=== PATIENT | male | born 1950 | race Caucasian/White ===

== ENCOUNTER 2019-10-02 15:02 | Inpatient (IN) | payer MEDICARE, OTHER ==
[~2019-10-02] VITALS: Ht 182.9 cm; Wt 90.9 kg
[2019-10-02] MEDS ORDERED: furosemide 40mg/4ml inj IV ONE (16:00)
[2019-10-02 16:23] LABS: BASOPHILS # (AUTO) 0.1 X10'3 (0-0.2); BASOPHILS % (AUTO) 1.8 % (0-1); EOSINOPHILS # (AUTO) 0.2 X10'3 (0-0.9); EOSINOPHILS % (AUTO) 2.1 % (0-6); HEMATOCRIT 33.9 % (42.0-52.0); HEMOGLOBIN 10.8 g/dl (14.0-17.9); LYMPHOCYTES # (AUTO) 0.7 X10'3 (1.1-4.8); LYMPHOCYTES % (AUTO) 8.3 % (21-51); MEAN CORPUSCULAR HEMOGLOBIN 26.4 PG (27.0-31.0); MEAN CORPUSCULAR HGB CONC 31.8 g/dL (33.0-36.5); MEAN PLATELET VOLUME 9.1 FL (7.4-10.4); MONOCYTES # (AUTO) 0.9 X10'3 (0-0.9); MONOCYTES % (AUTO) 11.1 % (2-12); NEUTROPHILS # (AUTO) 6.1 X10'3 (1.8-7.7); NEUTROPHILS % (AUTO) 76.7 % (42-75); PLATELET COUNT 152 X10'3 (140-440); RED BLOOD COUNT 4.08 X10'6 (4.70-6.10); RED CELL DISTRIBUTION WIDTH 19.9 % (11.5-14.5)
[2019-10-02 16:24] LABS: ALANINE AMINOTRANSFERASE 19 U/L (12-78); ALBUMIN 2.5 G/DL (3.4-5.0); ALBUMIN/GLOBULIN RATIO 0.6 (1.1-1.5); ALKALINE PHOSPHATASE 97 IU/L (46-116); ANION GAP 5 (8-16); ASPARTATE AMINO TRANSFERASE 23 U/L (10-37); BILIRUBIN,TOTAL 0.5 MG/DL (0.1-1.0); BLOOD UREA NITROGEN 34 MG/DL (7-18); BUN/CREATININE RATIO 24.8 (5.4-32.0); CALCIUM 8.4 MG/DL (8.5-10.1); CHLORIDE 104 MMOL/L (99-107); CREATININE 1.37 MG/DL (0.60-1.10); GLUCOSE 151 MG/DL (70-104); POTASSIUM 4.3 MMOL/L (3.5-5.1); SODIUM 138 MMOL/L (135-145); TOTAL CARBON DIOXIDE 29.1 MMOL/L (24-32); TOTAL PROTEIN 6.4 G/DL (6.4-8.2); eGFR 51 ML/MIN
[2019-10-02 16:32] LABS: MAGNESIUM 1.8 MG/DL (1.5-2.4)
[2019-10-02 17:10] LABS: ACANTHOCYTES 1+; ANISOCYTOSIS 2+; BURR CELLS 1+; ELLIPTOCYTES 2+; HYPOCHROMASIA 2+; PLATELET ESTIMATE NORMAL; POIKILOCYTOSIS 2+; POLYCHROMASIA FEW
[2019-10-02] MEDS ORDERED: acetaminophen 325mg tablet PO PRN (17:45)
[2019-10-02] MEDS ORDERED: mag hydrox/Alum hydrox/simeth 30ml oral suspension PO PRN (17:45)
[2019-10-02] MEDS ORDERED: ondansetron/PF 4mg/2ml inj IV PRN (17:45)
[2019-10-02] MEDS ORDERED: magnesium hydroxide 30ml (MOM) UD suspension PO PRN (17:45)
[2019-10-02] MEDS ORDERED: FA/M1TAB PO (17:50)
[2019-10-02] MEDS ORDERED: VITE1000C PO (17:50)
[2019-10-02] MEDS ORDERED: ATOR20TA66 PO (18:05)
[2019-10-02] MEDS ORDERED: INSU300I SQ (18:05)
[2019-10-02] MEDS ORDERED: FURO-149 PO (18:05)
[2019-10-02] MEDS ORDERED: AMLO-314 PO (18:05)
[2019-10-02] MEDS ORDERED: LISI-600 PO (18:05)
[2019-10-02] MEDS ORDERED: METF-436 PO (18:05)
[2019-10-02] MEDS ORDERED: METO-395 PO (18:05)
[2019-10-02 19:21] LABS: HEMOGLOBIN A1C 7.3 % (4.5-6.2)
--- NOTE | 2019-10-02 19:30 | NUR ---
Patient in room MED 308. I have received report from ED RN and had the opportunity to ask questions and assume patient care.
[2019-10-02 19:45] VITALS: BP 168/92
[2019-10-02] MEDS: heparin, porcine 5000 units/ml vial SQ SCH (20:36)
[2019-10-02] MEDS: furosemide 10 MG/1 ML 10ml inj IV SCH (20:36)
--- NOTE | 2019-10-02 20:47 | NUR ---
Report called to BARTOLOME Sesay. Patient stable in no apparent distress, ordered night medications given. Patient transferred with all belongings.
--- NOTE | 2019-10-02 20:55 | NUR ---
Patient in room MED 308. I have received report from Sonia MANCUSO and had the opportunity to ask questions and assume patient care.
[2019-10-02 21:23] VITALS: BP 173/96
[2019-10-03] VITALS (9 sets, daily range): BP systolic 137–180; BP diastolic 70–100
[2019-10-03 06:12] LABS: ALBUMIN 2.3 G/DL (3.4-5.0); ANION GAP 8 (8-16); BLOOD UREA NITROGEN 33 MG/DL (7-18); BUN/CREATININE RATIO 24.4 (5.4-32.0); CALCIUM 8.6 MG/DL (8.5-10.1); CHLORIDE 103 MMOL/L (99-107); CREATININE 1.35 MG/DL (0.60-1.10); GLUCOSE 124 MG/DL (70-104); POTASSIUM 3.8 MMOL/L (3.5-5.1); SODIUM 139 MMOL/L (135-145); TOTAL CARBON DIOXIDE 27.6 MMOL/L (24-32); eGFR 52 ML/MIN
[2019-10-03 06:13] LABS: EOSINOPHILS # (AUTO) 0.5 X10'3 (0-0.9); LYMPHOCYTES # (AUTO) 0.8 X10'3 (1.1-4.8); MEAN CORPUSCULAR HEMOGLOBIN 26.3 PG (27.0-31.0); MONOCYTES # (AUTO) 0.9 X10'3 (0-0.9)
[2019-10-03 06:15] LABS: BASOPHILS # (AUTO) 0.1 X10'3 (0-0.2); BASOPHILS % (AUTO) 1.8 % (0-1); EOSINOPHILS % (AUTO) 6.3 % (0-6); HEMATOCRIT 34.1 % (42.0-52.0); LYMPHOCYTES % (AUTO) 11.1 % (21-51); MEAN CORPUSCULAR HGB CONC 32.3 g/dL (33.0-36.5); MEAN CORPUSCULAR VOLUME 81.6 FL (78-98); MEAN PLATELET VOLUME 9.3 FL (7.4-10.4); MONOCYTES % (AUTO) 11.9 % (2-12); NEUTROPHILS % (AUTO) 68.9 % (42-75); PLATELET COUNT 138 X10'3 (140-440); RED BLOOD COUNT 4.18 X10'6 (4.70-6.10); RED CELL DISTRIBUTION WIDTH 19.5 % (11.5-14.5); WHITE BLOOD COUNT 7.2 X10'3 (4.5-11.0)
--- NOTE | 2019-10-03 06:18 | NUR ---
, worked in EMS
--- NOTE | 2019-10-03 06:20 | NUR ---
Problems reprioritized. Patient report given, questions answered & plan of care reviewed with Nicko MANCUSO.
--- NOTE | 2019-10-03 06:20 | NUR ---
Orientee documentation: I have reviewed and agree with all interventions, assessments performed and documented by Lázaro MANCUSO.
[2019-10-03 06:37] LABS: PLATELET ESTIMATE DECREASED
[2019-10-03 06:38] LABS: ANISOCYTOSIS 2+; ELLIPTOCYTES 2+; POLYCHROMASIA 1+
[2019-10-03 06:39] LABS: ACANTHOCYTES 1+; BURR CELLS FEW
--- NOTE | 2019-10-03 06:41 | NUR ---
Patient in room PCU 3020. I have received report from Lázaro MANCUSO and Andry MANCUSO and had the opportunity to ask questions and assume patient care.
[2019-10-03] MEDS: furosemide 10 MG/1 ML 10ml inj IV SCH ×2 (08:00→20:31)
[2019-10-03] MEDS: heparin, porcine 5000 units/ml vial SQ SCH ×2 (08:00→20:29)
[2019-10-03] MEDS: metoprolol succinate 25mg (24-HOUR) SR. Tablet PO SCH (09:25)
[2019-10-03] MEDS ORDERED: insulin Lispro (HumaLOG) vial - multi-dose SQ SCH (09:45)
[2019-10-03] MEDS ORDERED: dextrose 50%-water 50ml dispensing syringe IV PRN (09:45)
[2019-10-03] MEDS ORDERED: glucagon, human recombinant 1mg kit SUBCUT PRN (09:45)
[2019-10-03] MEDS ORDERED: MESSAGE TO PHARMACY PO ONE (09:45)
[2019-10-03] MEDS ORDERED: dextrose ORAL solution 15 GM/59 ML bottle PO PRN ×2 (09:45)
[2019-10-03] MEDS ORDERED: hydrALAZINE 20mg/ml inj. IV ONE (11:25)
--- NOTE | 2019-10-03 12:27 | NUR ---
Thoracentesis completed by IR and drained 1000ml from R side and 850ml from L side, follow up CXR ordered
--- NOTE | 2019-10-03 12:27 | NUR ---
received orders to start hyper/hypoglycemia protocol per dr. cooney
[2019-10-03] MEDS ORDERED: hydrALAZINE 20mg/ml inj. IV PRN (13:00)
[2019-10-03] MEDS ORDERED: lisinopril 20mg tablet PO ONE (13:00)
--- NOTE | 2019-10-03 14:11 | NUR ---
Pt c/o persistent [employer] cough, requesting PRN. PAGER ID: [phone] MESSAGE: [phone] Jose Yuan C/o persistent non-productive cough, requesting PRN. Reema [phone]
--- NOTE | 2019-10-03 15:23 | NUR ---
DM consult: Pt with A1c 7.3 seen at bedside. Pt reports he was previously seeing his family MD for DM management q 3 months, taking his meds per rx, and checks his BG levels fasting q morning with resulting numbers in the 80-90s. Pt reports his A1c was recently close to 5 however he hasn't been able to take his medications d/t no longer having a provider to fill his rx. administrative services specialist has already been consulted and pt reports already talking with CM. Written DM education with referral to outpatient DM class and RD contact information provided. Pt currently on a CHO controlled diet documented with 100% PO intake meeting nutrient needs. Pt reports not getting completely full from meals and agrees to double eggs QD at breakfast and double protein TID, d/w dietary. Pt denies any food allergies, difficulty chewing/swallowing, or constipation/diarrhea. Will continue to follow. Addendum: 10/03/19 at [address] Amended: Links added.
--- NOTE | 2019-10-03 18:00 | NUR ---
Patient in room PCU 3020. I have received report from BARTOLOME Maharaj and had the opportunity to ask questions and assume patient care. Addendum: 10/04/19 at 0121 by Suzanne Gaston RN Amended: Links added.
--- NOTE | 2019-10-03 18:14 | NUR ---
Problems reprioritized. Patient report given, questions answered & plan of care reviewed with Essie RN.
--- NOTE | 2019-10-03 18:51 | NUR ---
Patient in room PCU 3020. I have received report from BARTOLOME Maharaj and had the opportunity to ask questions and assume patient care.
[2019-10-03] MEDS ORDERED: metFORMIN 500mg tablet PO SCH (20:00)
[2019-10-03] MEDS: lisinopril 20mg tablet PO SCH (20:29)
[2019-10-03] MEDS: mineral oil/petrolatum, white cream 113gm jar TP SCH (20:49)
[2019-10-03] MEDS: insulin glargine (Lantus) pen - multi-dose SQ SCH (21:00)
[2019-10-03] MEDS ORDERED: insulin glargine (Lantus) pen - multi-dose SQ SCH (21:00)
[2019-10-04] MEDS ORDERED: diphenhydrAMINE 25mg capsule PO PRN (01:05)
[2019-10-04 02:00] VITALS: BP 149/85
[2019-10-04 05:27] LABS: BASOPHILS # (AUTO) 0.1 X10'3 (0-0.2); BASOPHILS % (AUTO) 1.3 % (0-1); EOSINOPHILS # (AUTO) 0.3 X10'3 (0-0.9); EOSINOPHILS % (AUTO) 4.1 % (0-6); HEMATOCRIT 32.5 % (42.0-52.0); HEMOGLOBIN 10.5 g/dl (14.0-17.9); LYMPHOCYTES # (AUTO) 0.7 X10'3 (1.1-4.8); LYMPHOCYTES % (AUTO) 8.8 % (21-51); MEAN CORPUSCULAR HEMOGLOBIN 26.7 PG (27.0-31.0); MEAN CORPUSCULAR HGB CONC 32.4 g/dL (33.0-36.5); MEAN CORPUSCULAR VOLUME 82.4 FL (78-98); MEAN PLATELET VOLUME 9.2 FL (7.4-10.4); MONOCYTES # (AUTO) 0.8 X10'3 (0-0.9); MONOCYTES % (AUTO) 10.1 % (2-12); NEUTROPHILS % (AUTO) 75.7 % (42-75); PLATELET COUNT 131 X10'3 (140-440); RED BLOOD COUNT 3.94 X10'6 (4.70-6.10); WHITE BLOOD COUNT 7.9 X10'3 (4.5-11.0)
[2019-10-04 05:40] LABS: ALBUMIN 2.2 G/DL (3.4-5.0); ANION GAP 4 (8-16); BLOOD UREA NITROGEN 35 MG/DL (7-18); BUN/CREATININE RATIO 26.1 (5.4-32.0); CALCIUM 8.5 MG/DL (8.5-10.1); CHLORIDE 103 MMOL/L (99-107); CREATININE 1.34 MG/DL (0.60-1.10); GLUCOSE 57 MG/DL (70-104); POTASSIUM 3.6 MMOL/L (3.5-5.1); SODIUM 139 MMOL/L (135-145); TOTAL CARBON DIOXIDE 32.5 MMOL/L (24-32); eGFR 53 ML/MIN
[2019-10-04 06:00] VITALS: BP 155/78
--- NOTE | 2019-10-04 06:18 | NUR ---
Patient in room PCU 3020. I have received report from Essie MANCUSO and had the opportunity to ask questions and assume patient care.
--- NOTE | 2019-10-04 06:24 | NUR ---
Problems reprioritized. Patient report given, questions answered & plan of care reviewed with BARTOLOME Maharaj.
--- NOTE | 2019-10-04 06:37 | NUR ---
FSBG critical low, 52, administered oral glucose shot. Pt also given a juice box. Will recheck [facility]SB[facility] @ 0650.
[2019-10-04] MEDS: metoprolol succinate 25mg (24-HOUR) SR. Tablet PO SCH (07:38)
[2019-10-04] MEDS: heparin, porcine 5000 units/ml vial SQ SCH ×2 (07:38→20:47)
[2019-10-04] MEDS: lisinopril 20mg tablet PO SCH ×2 (07:38→20:46)
[2019-10-04] MEDS: atorvastatin 20mg tablet PO SCH (07:39)
[2019-10-04] MEDS: mineral oil/petrolatum, white cream 113gm jar TP SCH ×2 (07:39→20:47)
[2019-10-04] MEDS: multivitamins, therapeutics tablet PO SCH (07:39)
[2019-10-04] MEDS: furosemide 10 MG/1 ML 10ml inj IV SCH ×2 (07:39→20:45)
--- NOTE | 2019-10-04 08:21 | NUR ---
received orders to lower lantus to 6units QHS, start incentive spirometry for cough and continue po benadryl for itching per dr. cooney
[2019-10-04 11:00] VITALS: BP 149/77
--- NOTE | 2019-10-04 11:06 | NUR ---
Problems reprioritized. Patient report given, questions answered & plan of care reviewed with Kirill MANCUSO.
--- NOTE | 2019-10-04 11:15 | NUR ---
Patient in room PCU 3020. I have received report from BARTOLOME Burdick and had the opportunity to ask questions and assume patient care.
[2019-10-04 15:00] VITALS: BP 136/68
[2019-10-04 18:00] VITALS: BP 148/80
--- NOTE | 2019-10-04 18:36 | NUR ---
Problems reprioritized. Patient report given, questions answered & plan of care reviewed with BARTOLOME Brewer.
--- NOTE | 2019-10-04 18:56 | NUR ---
Patient in room PCU 3020. I have received report from Marianne Gallardo and had the opportunity to ask questions and assume patient care. Addendum: 10/04/19 at 1857 by Daniella Neal RN Amended: Links added.
--- NOTE | 2019-10-04 20:05 | NUR ---
pt took hs meds no complaints at this time. cream applied to arms and legs bilat. pt states its helping with the itching and denies need for benadryl at this time.
[2019-10-04] MEDS: insulin glargine (Lantus) pen - multi-dose SQ SCH (21:00)
[2019-10-04] MEDS ORDERED: insulin glargine (Lantus) pen - multi-dose SQ SCH (21:00)
[2019-10-04 22:00] VITALS: BP 142/78
--- NOTE | 2019-10-04 22:00 | NUR ---
pt a/o pleasant very talkative moved into house his house after exfather in law . pt from [place] and needs to find Md's here in the area.
--- NOTE | 2019-10-05 | NUR ---
pt resting eyes closed without s&s of distress at this time.
[2019-10-05 02:00] VITALS: BP 148/80
--- NOTE | 2019-10-05 02:07 | NUR ---
resting eyes closed without changes.
--- NOTE | 2019-10-05 03:09 | NUR ---
resting without changes.
--- NOTE | 2019-10-05 05:10 | NUR ---
resting eyes closed without changes at this time.
[2019-10-05 05:43] LABS: BASOPHILS # (AUTO) 0.1 X10'3 (0-0.2); BASOPHILS % (AUTO) 1.8 % (0-1); EOSINOPHILS # (AUTO) 0.4 X10'3 (0-0.9); EOSINOPHILS % (AUTO) 6.2 % (0-6); HEMATOCRIT 31.6 % (42.0-52.0); HEMOGLOBIN 10.4 g/dl (14.0-17.9); LYMPHOCYTES # (AUTO) 0.6 X10'3 (1.1-4.8); LYMPHOCYTES % (AUTO) 8.6 % (21-51); MEAN CORPUSCULAR VOLUME 81.7 FL (78-98); MEAN PLATELET VOLUME 9.6 FL (7.4-10.4); MONOCYTES # (AUTO) 0.6 X10'3 (0-0.9); MONOCYTES % (AUTO) 9.7 % (2-12); NEUTROPHILS # (AUTO) 4.9 X10'3 (1.8-7.7); NEUTROPHILS % (AUTO) 73.7 % (42-75); PLATELET COUNT 129 X10'3 (140-440); RED BLOOD COUNT 3.87 X10'6 (4.70-6.10); RED CELL DISTRIBUTION WIDTH 19.2 % (11.5-14.5); WHITE BLOOD COUNT 6.6 X10'3 (4.5-11.0)
[2019-10-05 06:00] VITALS: BP 154/86
[2019-10-05 06:14] LABS: ALBUMIN 2.2 G/DL (3.4-5.0); ANION GAP 6 (8-16); BLOOD UREA NITROGEN 37 MG/DL (7-18); BUN/CREATININE RATIO 28.2 (5.4-32.0); CALCIUM 8.2 MG/DL (8.5-10.1); CHLORIDE 103 MMOL/L (99-107); CREATININE 1.31 MG/DL (0.60-1.10); GLUCOSE 149 MG/DL (70-104); POTASSIUM 3.5 MMOL/L (3.5-5.1); SODIUM 140 MMOL/L (135-145); TOTAL CARBON DIOXIDE 30.7 MMOL/L (24-32); eGFR 54 ML/MIN
--- NOTE | 2019-10-05 06:30 | NUR ---
Patient in room PCU 3020. I have received report from BARTOLOME BEATTY and had the opportunity to ask questions and assume patient care.
--- NOTE | 2019-10-05 06:34 | NUR ---
Problems reprioritized. Patient report given, questions answered & plan of care reviewed with Elliot Gallardo. Addendum: 10/05/19 at 0635 by Daniella Neal RN Amended: Links added.
[2019-10-05 07:23] LABS: PLATELET ESTIMATE DECREASED; POLYCHROMASIA 1+
[2019-10-05 07:24] LABS: ACANTHOCYTES 1+; ANISOCYTOSIS 2+; BURR CELLS FEW; ELLIPTOCYTES 1+
[2019-10-05] MEDS: furosemide 10 MG/1 ML 10ml inj IV SCH ×2 (08:27→19:33)
[2019-10-05] MEDS: multivitamins, therapeutics tablet PO SCH (08:36)
[2019-10-05] MEDS: metoprolol succinate 25mg (24-HOUR) SR. Tablet PO SCH (08:36)
[2019-10-05] MEDS: atorvastatin 20mg tablet PO SCH (08:36)
[2019-10-05] MEDS: mineral oil/petrolatum, white cream 113gm jar TP SCH ×2 (08:37→19:38)
[2019-10-05] MEDS: heparin, porcine 5000 units/ml vial SQ SCH ×2 (08:37→19:33)
[2019-10-05] MEDS: lisinopril 20mg tablet PO SCH ×2 (08:37→19:37)
[2019-10-05 11:00] VITALS: BP 155/77
[2019-10-05 15:00] VITALS: BP 149/72
[2019-10-05 18:00] VITALS: BP 143/75
--- NOTE | 2019-10-05 18:43 | NUR ---
Problems reprioritized. Patient report given, questions answered & plan of care reviewed with BARTOLOME GARCIA.
[2019-10-05] MEDS: insulin glargine (Lantus) pen - multi-dose SQ SCH (21:00)
[2019-10-05] MEDS: dextrose 50%-water 50ml dispensing syringe IV PRN ×2 (21:19→22:15)
--- NOTE | 2019-10-05 21:41 | NUR ---
Patient in room PCU 3020. I have received report from BARTOLOME Zarate and had the opportunity to ask questions and assume patient care.
[2019-10-05 23:00] VITALS: BP 142/64
[2019-10-06] MEDS ORDERED: dextrose 5%-1/2 normal saline 1,000 ML IV SCH (01:15)
[2019-10-06 03:00] VITALS: BP 121/56
[2019-10-06 05:15] LABS: BASOPHILS # (AUTO) 0.1 X10'3 (0-0.2); BASOPHILS % (AUTO) 0.9 % (0-1); EOSINOPHILS # (AUTO) 0.4 X10'3 (0-0.9); EOSINOPHILS % (AUTO) 4.8 % (0-6); HEMATOCRIT 32.8 % (42.0-52.0); HEMOGLOBIN 10.7 g/dl (14.0-17.9); LYMPHOCYTES # (AUTO) 0.8 X10'3 (1.1-4.8); LYMPHOCYTES % (AUTO) 9.4 % (21-51); MEAN CORPUSCULAR HEMOGLOBIN 26.8 PG (27.0-31.0); MEAN CORPUSCULAR HGB CONC 32.6 g/dL (33.0-36.5); MEAN PLATELET VOLUME 9.4 FL (7.4-10.4); MONOCYTES # (AUTO) 0.8 X10'3 (0-0.9); MONOCYTES % (AUTO) 10.3 % (2-12); NEUTROPHILS # (AUTO) 6.1 X10'3 (1.8-7.7); NEUTROPHILS % (AUTO) 74.6 % (42-75); PLATELET COUNT 146 X10'3 (140-440); RED CELL DISTRIBUTION WIDTH 18.7 % (11.5-14.5); WHITE BLOOD COUNT 8.2 X10'3 (4.5-11.0)
[2019-10-06 05:23] LABS: ALBUMIN 2.1 G/DL (3.4-5.0); ANION GAP 6 (8-16); BLOOD UREA NITROGEN 36 MG/DL (7-18); BUN/CREATININE RATIO 24.7 (5.4-32.0); CHLORIDE 102 MMOL/L (99-107); CREATININE 1.46 MG/DL (0.60-1.10); GLUCOSE 106 MG/DL (70-104); POTASSIUM 3.5 MMOL/L (3.5-5.1); SODIUM 138 MMOL/L (135-145); TOTAL CARBON DIOXIDE 30.3 MMOL/L (24-32); eGFR 48 ML/MIN
[2019-10-06 06:00] VITALS: BP 146/69
--- NOTE | 2019-10-06 06:20 | NUR ---
Problems reprioritized. Patient report given, questions answered & plan of care reviewed with BARTOLOME Zarate.
--- NOTE | 2019-10-06 06:39 | NUR ---
Patient in room PCU 3020. I have received report from BARTOLOME GARCIA and had the opportunity to ask questions and assume patient care.
[2019-10-06] MEDS: multivitamins, therapeutics tablet PO SCH (08:25)
[2019-10-06] MEDS: atorvastatin 20mg tablet PO SCH (08:25)
[2019-10-06] MEDS: heparin, porcine 5000 units/ml vial SQ SCH ×2 (08:25→20:04)
[2019-10-06] MEDS: lisinopril 20mg tablet PO SCH ×2 (08:26→20:04)
[2019-10-06] MEDS: furosemide 10 MG/1 ML 10ml inj IV SCH ×2 (08:27→20:04)
[2019-10-06] MEDS: mineral oil/petrolatum, white cream 113gm jar TP SCH ×2 (08:27→20:00)
[2019-10-06] MEDS: metoprolol succinate 25mg (24-HOUR) SR. Tablet PO SCH (08:27)
--- NOTE | 2019-10-06 08:36 | NUR ---
Passed patients medications while primary RN was on break per RN request. Verified medications and patient using the eMAR and 2 identifiers. Patients BP prior to giving medications: 133/72, heart rate was 74. Will continue to monitor patient while RN on break.
--- NOTE | 2019-10-06 12:20 | NUR ---
Initial: Pt admit w/ CHF exacerbation EF 30-35% w/ bilateral pleural effusions s/p thoracentesis. Pt hx prostate CA on experimental treatment per MD note. PO 100% carb controlled diet meeting needs. LBM 10/04. No nutrition concerns at this time. Will continue to monitor. Rec: 1. continue carb controlled diet 2. wt per rx Addendum: 10/06/19 at [address] Amended: Links added.
--- NOTE | 2019-10-06 18:05 | NUR ---
PAGER ID: [phone] MESSAGE: DR. HACKETT, [phone]/ROSALIE. WHAT ABOUT THE DISCHARGE? ROULA [phone]. TY
--- NOTE | 2019-10-06 18:45 | NUR ---
Student documentation: I have reviewed and agree with all interventions, assessments performed and documented by MOUSTAPHA LUIS STUDENT..
--- NOTE | 2019-10-06 18:45 | NUR ---
Problems reprioritized. Patient report given, questions answered & plan of care reviewed with BARTOLOME GARCIA.
[2019-10-06 19:00] VITALS: BP 162/84
--- NOTE | 2019-10-06 20:12 | NUR ---
Eucerin cream non administered. Patient states skin is not irritated and medication is not needed. Will continue to monitor closely.
[2019-10-06] MEDS: insulin glargine (Lantus) pen - multi-dose SQ SCH (22:03)
[2019-10-06 23:00] VITALS: BP 152/77
[2019-10-07 02:56] VITALS: BP 145/70
[2019-10-07 05:10] LABS: BASOPHILS # (AUTO) 0.1 X10'3 (0-0.2); BASOPHILS % (AUTO) 1.4 % (0-1); EOSINOPHILS # (AUTO) 0.7 X10'3 (0-0.9); EOSINOPHILS % (AUTO) 8.6 % (0-6); HEMATOCRIT 34.3 % (42.0-52.0); HEMOGLOBIN 11.1 g/dl (14.0-17.9); LYMPHOCYTES # (AUTO) 0.7 X10'3 (1.1-4.8); LYMPHOCYTES % (AUTO) 9.5 % (21-51); MEAN CORPUSCULAR HEMOGLOBIN 26.5 PG (27.0-31.0); MEAN CORPUSCULAR HGB CONC 32.3 g/dL (33.0-36.5); MEAN CORPUSCULAR VOLUME 82.3 FL (78-98); MEAN PLATELET VOLUME 9.5 FL (7.4-10.4); MONOCYTES # (AUTO) 0.9 X10'3 (0-0.9); MONOCYTES % (AUTO) 11.3 % (2-12); NEUTROPHILS # (AUTO) 5.4 X10'3 (1.8-7.7); NEUTROPHILS % (AUTO) 69.2 % (42-75); PLATELET COUNT 153 X10'3 (140-440); RED BLOOD COUNT 4.17 X10'6 (4.70-6.10); RED CELL DISTRIBUTION WIDTH 18.9 % (11.5-14.5); WHITE BLOOD COUNT 7.8 X10'3 (4.5-11.0)
[2019-10-07 05:34] LABS: ALBUMIN 2.3 G/DL (3.4-5.0); ANION GAP 5 (8-16); BLOOD UREA NITROGEN 37 MG/DL (7-18); BUN/CREATININE RATIO 22.3 (5.4-32.0); CALCIUM 8.4 MG/DL (8.5-10.1); CHLORIDE 103 MMOL/L (99-107); CREATININE 1.66 MG/DL (0.60-1.10); GLUCOSE 125 MG/DL (70-104); POTASSIUM 3.8 MMOL/L (3.5-5.1); SODIUM 140 MMOL/L (135-145); TOTAL CARBON DIOXIDE 31.6 MMOL/L (24-32); eGFR 41 ML/MIN
[2019-10-07 05:45] LABS: PLATELET ESTIMATE NORMAL
[2019-10-07 05:46] LABS: LARGE PLATELETS FEW; POLYCHROMASIA 2+
[2019-10-07 06:00] VITALS: BP 167/74
--- NOTE | 2019-10-07 06:40 | NUR ---
Patient in room PCU 3017. I have received report from BARTOLOME Aguayo and had the opportunity to ask questions and assume patient care. Pt awake and alert. In no apparent distress. Will continue to monitor.
[2019-10-07] MEDS: heparin, porcine 5000 units/ml vial SQ SCH (07:35)
[2019-10-07 07:36] VITALS: BP_SYST 167
[2019-10-07] MEDS: metoprolol succinate 25mg (24-HOUR) SR. Tablet PO SCH (07:36)
[2019-10-07] MEDS: multivitamins, therapeutics tablet PO SCH (07:36)
[2019-10-07] MEDS: furosemide 10 MG/1 ML 10ml inj IV SCH (07:36)
[2019-10-07] MEDS: lisinopril 20mg tablet PO SCH (07:36)
[2019-10-07] MEDS: atorvastatin 20mg tablet PO SCH (07:36)
[2019-10-07] MEDS: mineral oil/petrolatum, white cream 113gm jar TP SCH (07:37)
[2019-10-07] MEDS ORDERED: FURO-149 PO (09:05)
== END 2019-10-07 11:33 | disposition home or self-care (01) | DRG 291 ==
LOC: ER 15:03 → ED HOLD 17:54 → MED 3N 19:30 → PCU 3S 21:00
PROVIDERS: ADMIT Family Medicine; ATTEND Hospitalist
PROC: 0W9B3ZZ Drainage of Left Pleural Cavity, Percutaneous Approach (ICD-10-PCS; principal; 2019-10-03)
PROC: 0W993ZZ Drainage of Right Pleural Cavity, Percutaneous Approach (ICD-10-PCS; 2019-10-03)
DX: I13.0 Hypertensive heart and chronic kidney disease with heart failure and stage 1 through stage 4 chronic kidney disease, or unspecified chronic kidney disease (principal); I50.23 Acute on chronic systolic (congestive) heart failure; N17.9 Acute kidney failure, unspecified; J91.8 Pleural effusion in other conditions classified elsewhere; C61 Malignant neoplasm of prostate; N18.3 Chronic kidney disease, stage 3 (moderate); E11.649 Type 2 diabetes mellitus with hypoglycemia without coma; Z95.5 Presence of coronary angioplasty implant and graft
CPT/HCPCS: 32555; 36415; 71045; 80048; 80053; 82948; 83036; 83735; 83880; 85025; 85610; 87081; 93005; 93306; 99285; G0378; J0360; J1644; J1815; J1940; Q0163

== ENCOUNTER 2019-10-10 11:16 | Outpatient (CLI) | payer MEDICARE, OTHER ==
[~2019-10-10 11:16] MED LIST: AMLO-314 PO; ATOR20TA66 PO; FA/M1TAB PO; FURO-149 PO; INSU300I SQ; METO-395 PO; VITE1000C PO
[2019-10-10 12:20] LABS: ALBUMIN 2.7 G/DL (3.4-5.0); ANION GAP 4 (8-16); BLOOD UREA NITROGEN 33 MG/DL (7-18); BUN/CREATININE RATIO 25.2 (5.4-32.0); CALCIUM 8.8 MG/DL (8.5-10.1); CHLORIDE 102 MMOL/L (99-107); CREATININE 1.31 MG/DL (0.60-1.10); GLUCOSE 152 MG/DL (70-104); POTASSIUM 4.5 MMOL/L (3.5-5.1); SODIUM 136 MMOL/L (135-145); TOTAL CARBON DIOXIDE 29.7 MMOL/L (24-32); eGFR 54 ML/MIN
== END 2019-10-10 23:59 | disposition home or self-care (01) ==
LOC: LAB 11:16
PROVIDERS: ATTEND Hospitalist
DX: N28.9 Disorder of kidney and ureter, unspecified (principal)
CPT/HCPCS: 36415; 80048